=== PATIENT | female | born 2005 | race American Indian/Alaskan Native ===

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

== ENCOUNTER 2024-03-09 10:06 | Emergency (ER) | payer SELFPAY ==
[2024-03-09 10:34] VITALS: BP 134/75; PULSE 105
[2024-03-09] MEDS: Ketorolac 30 MG/ML SDV IM ONE (10:50)
== END 2024-03-09 10:56 | disposition home or self-care (01) ==
LOC: DL.ED 10:06
DX: S99.921A Unspecified injury of right foot, initial encounter (principal); W00.0XXA Fall on same level due to ice and snow, initial encounter
CPT/HCPCS: 73630; 96372; 99283; J1885